=== PATIENT | female | born 1965 | race Caucasian/White ===

== ENCOUNTER 2024-07-04 18:26 | Emergency (ER) | payer MEDICAID ==
[~2024-07-04] VITALS: Ht 152.4 cm; Wt 55.0 kg
[2024-07-04 18:27] VITALS: TEMP 36.7; O2SAT 98
[2024-07-04] MEDS ORDERED: IBUPROFEN 600MG TABLET PO ONE (22:00)
[2024-07-04 22:58] VITALS: BP 145/62; RESP 18; O2SAT 100
[2024-07-04] MEDS ORDERED: IBUP-2029 MT (23:09)
[2024-07-04 23:29] VITALS: PULSE 71
[2024-07-04] MEDS: IBUPROFEN 600MG TABLET PO NR (23:29)
== END 2024-07-05 00:35 | disposition home or self-care (01) ==
LOC: ER 18:26
DX: S90.32XA Contusion of left foot, initial encounter (principal); X58.XXXA Exposure to other specified factors, initial encounter; Y93.01 Activity, walking, marching and hiking; Y92.89 Other specified places as the place of occurrence of the external cause; Y99.8 Other external cause status
CPT/HCPCS: 29515; 73610; 73630; 99284